=== PATIENT | female | born 2005 | race Hispanic/Latino ===

== ENCOUNTER 2023-01-30 07:50 | Outpatient (CLI) | payer BC | END 2023-01-30 07:51 | disposition home or self-care (01) | LOC: NM 07:50 | PROVIDERS: ATTEND Physician Assistant Medical | DX: R11.2 Nausea with vomiting, unspecified (principal); R63.4 Abnormal weight loss; K30 Functional dyspepsia | CPT/HCPCS: 78264; A9541 ==